=== PATIENT | male | born 1965 ===

== ENCOUNTER 2017-09-18 14:41 | Emergency (ER) | payer OTHER ==
[2017-09-18 14:55] VITALS: BMI 25.2
[2017-09-18 15:05] VITALS: BP 135/92; PULSE 102; RESP 18; TEMP 98.7; O2SAT 96
--- NOTE | 2017-09-18 15:46 | ED PDOC ---
Arrival/HPI - General Chief Complaint: Lower Extremity Problem/Injury Time Seen by Provider: 09/18/17 15:42 Historian: Patient - History of Present Illness Narrative History of Present Illness (Text): 09/18/17 15:44 A 52 year old male, whose past medical history includes diabetes on Metformin, presents to the emergency department complaining of intermittent pain to bilateral hamstrings since today. Patient reports he was recently seen for same symptoms and discharged home with medication. Patient states he was unable to fill prescriptions dues to financial issues. Patient denies any trauma, fever, chills, nausea, vomiting, diarrhea, abdominal pain, urinary symptoms, chest pain , shortness of breath, headache, dizziness, weakness or any other complaints. Time/Duration: Other (today) Symptom Course: Intermittent Quality: Throbbing Context: Home Past Medical History - Provider Review Nursing Documentation Reviewed: Yes - Endocrine/Metabolic Hx Diabetes Mellitus Type 2: Yes - Psychiatric Hx Substance Use: No Family/Social History - Physician Review Nursing Documentation Reviewed: Yes Family/Social History: No Known Family HX Smoking Status: Never Smoked Hx Alcohol Use: Yes Frequency of alcohol use: Daily Hx Substance Use: No Allergies/Home Meds Allergies/Adverse Reactions: Allergies No Known Allergies Allergy (Verified 09/18/17 14:55) Review of Systems - Physician Review All systems were reviewed & negative as marked: Yes - Review of Systems Constitutional: absent: Fevers, Night Sweats Respiratory: absent: SOB Cardiovascular: absent: Chest Pain Gastrointestinal: absent: Abdominal Pain, Diarrhea, Nausea, Vomiting Genitourinary Male: absent: Dysuria, Frequency, Hematuria Musculoskeletal: Back Pain, Other (pain to bilateral hamstrings) Skin: absent: Rash, Pruritis Neurological: absent: Headache, Dizziness, Focal Weakness Psychiatric: absent: Anxiety, Depression Physical Exam Vital Signs Reviewed: Yes Vital Signs Temp Pulse Resp BP Pulse Ox 09/18/17 14:41 98.7 F 102 H 18 135/92 H 96 Temperature: Afebrile Blood Pressure: Hypertensive Pulse: Tachycardic Respiratory Rate: Normal Appearance: Positive for: Well-Appearing, Non-Toxic, Comfortable Pain Distress: None Mental Status: Positive for: Alert and Oriented X 3 - Systems Exam Head: Present: Atraumatic, Normocephalic Pupils: Present: PERRL Extroacular Muscles: Present: EOMI Conjunctiva: Present: Normal Mouth: Present: Moist Mucous Membranes Neck: Present: Normal Range of Motion Respiratory/Chest: Present: Clear to Auscultation, Good Air Exchange. No: Respiratory Distress, Accessory Muscle Use Cardiovascular: Present: Regular Rate and Rhythm, Normal S1, S2. No: Murmurs Abdomen: Present: Normal Bowel Sounds. No: Tenderness, Distention, Peritoneal Signs Rectal: Present: Normal Rectal Tone. No: Occult Blood, Rectal Tenderness, Gross Blood, Melena, Hemorrhoids, Fissures, Nodule/Mass/Lesions Back: Present: Normal Inspection. No: Midline Tenderness, Paraspinal Tenderness , Pain with Leg Raise Upper Extremity: Present: Normal Inspection, Normal ROM, NORMAL PULSES. No: Cyanosis, Edema Lower Extremity: Present: Normal Inspection, NORMAL PULSES, Normal ROM, Neurovascularly Intact, Capillary Refill < 2 s, Other (distal pulses intact bilaterally; no calf tenderness, full rom of both extremities. muscle strenght 5 /5 bilaterally). No: Edema, CALF TENDERNESS, Tenderness, Swelling, Erythema, Deformity, Temperature Abnormalties Neurological: Present: GCS=15, Speech Normal, Motor Func Grossly Intact, Normal Sensory Function, Normal Cerebellar Funct, Gait Normal Skin: Present: Warm, Dry, Normal Color. No: Rashes Psychiatric: Present: Alert, Oriented x 3 Medical Decision Making ED Course and Treatment: 09/18/17 15:44 Impression: A 52 year old male with pain to bilateral hamstrings today. pt states he was seen in ER on 09/09/17 with same complaints; pt states he didnt take medications prescribed. account found from 09/09/17 account number; [id number] mr: [id number] reviewed cbc cmp magnesium duplex b/l lower legs xray ls spine; toradol/valium ordered 09/18/17 17:16 pt is ambulating around the ER; no distress. 09/18/17 17:36 pt eloped from ER without treatment/testing. - RAD Interpretation Radiology Orders: 09/18/17 16:12 DUPLEX LOWER EXTRM VEIN BILAT [US] Stat 09/18/17 16:22 LS SPINE WITH OBL > 18 YRS OLD [RAD] Stat - Medication Orders Current Medication Orders: Discontinued Medications Diazepam (Valium) 5 mg PO ONCE ONE Stop: 09/18/17 17:16 Ketorolac Tromethamine (Toradol) 60 mg IM STAT STA Stop: 09/18/17 17:16 - Scribe Statement The provider has reviewed the documentation as recorded by the Scribe Karen Newberry Provider Scribe Attestation: All medical record entries made by the Scribe were at my direction and personally dictated by me. I have reviewed the chart and agree that the record accurately reflects my personal performance of the history, physical exam, medical decision making, and the department course for this patient. I have also personally directed, reviewed, and agree with the discharge instructions and disposition. Disposition/Present on Arrival - Present on Arrival Any Indicators Present on Arrival: No History of DVT/PE: No History of Uncontrolled Diabetes: No Urinary Catheter: No History of Decub. Ulcer: No History Surgical Site Infection Following: None - Disposition Have Diagnosis and Disposition been Completed?: Yes Diagnosis: Back pain, Leg pain Disposition: ELOPEMENT - ER ONLY Disposition Time: 17:38 Condition: UNKNOWN Referrals: PCP,NO [Primary Care Provider] - Follow up with primary Forms: [employer] (Pashto)
== END 2017-09-18 17:35 | disposition left against medical advice (07) ==
LOC: ED 14:41
DX: M79.605 Pain in left leg (principal); M79.604 Pain in right leg; M54.9 Dorsalgia, unspecified; E11.9 Type 2 diabetes mellitus without complications

== ENCOUNTER 2017-11-06 11:03 | Emergency (ER) | payer OTHER ==
[2017-11-06 11:03] VITALS: BMI 25.2
[2017-11-06 11:51] VITALS: RESP 18
--- NOTE | 2017-11-06 11:59 | ED PDOC ---
Arrival/HPI - General Chief Complaint: Alcohol Ingestion Time Seen by Provider: 11/06/17 11:05 Historian: Patient - History of Present Illness Narrative History of Present Illness (Text): 11/06/17 11:37 A 52 year old male, whose past medical history includes intoxication, who presents to the emergency department brought in for alcohol intoxication. Patient denies any suicidal/homicidal ideation, chest pain, abdominal pain, or any other complaints at this time. Limited HPI and ROS secondary to intoxication. No PMD Time/Duration: Other (today) Symptom Onset: Gradual Symptom Course: Unchanged Activities at Onset: Light Past Medical History - Provider Review Nursing Documentation Reviewed: Yes - Endocrine/Metabolic Hx Diabetes Mellitus Type 2: Yes - Psychiatric Hx Substance Use: No Family/Social History - Physician Review Nursing Documentation Reviewed: Yes Family/Social History: No Known Family HX Smoking Status: Never Smoked Hx Alcohol Use: Yes Hx Substance Use: No Allergies/Home Meds Allergies/Adverse Reactions: Allergies No Known Allergies Allergy (Verified 11/06/17 11:08) Home Medications: Home Meds Medication Instructions Recorded Confirmed Unobtainable 11/06/17 11/06/17 Review of Systems - Review of Systems Systems not reviewed;Unavailable: Intoxicated Physical Exam Vital Signs Reviewed: Yes Vital Signs Temp Pulse Resp BP Pulse Ox 11/06/17 18:10 98.8 F 100 H 18 114/77 96 11/06/17 16:44 115 H 18 134/99 H 99 11/06/17 12:56 94 H 18 132/78 99 11/06/17 11:45 98.3 F 108 H 18 134/88 99 11/06/17 11:14 98.3 F 108 H 17 134/88 97 Temperature: Afebrile Blood Pressure: Normal Pulse: Regular Respiratory Rate: Normal Appearance: Positive for: Other (intoxicated; etoh on breath) Pain Distress: None Mental Status: No: Alert and Oriented X 3 (alert and oriented x 2) Finger Stick Blood Glucose: 113 - Systems Exam Head: Present: Atraumatic, Normocephalic Pupils: Present: PERRL Extroacular Muscles: Present: EOMI Conjunctiva: Present: Normal Mouth: Present: Moist Mucous Membranes Neck: Present: Normal Range of Motion. No: Meningeal Signs, MIDLINE TENDERNESS , Paraspinal Tenderness Respiratory/Chest: Present: Clear to Auscultation, Good Air Exchange. No: Respiratory Distress, Accessory Muscle Use Cardiovascular: Present: Regular Rate and Rhythm, Normal S1, S2. No: Murmurs Abdomen: No: Tenderness, Distention, Peritoneal Signs Upper Extremity: Present: Normal Inspection. No: Cyanosis, Edema Lower Extremity: Present: Normal Inspection. No: Edema Neurological: Present: GCS=15, CN II-XII Intact, Speech Normal Skin: Present: Warm, Dry, Normal Color. No: Rashes Psychiatric: Present: Alert. No: Oriented x 3 (oriented x 2) Medical Decision Making ED Course and Treatment: 11/06/17 11:39 Impression: 52 year old male brought in due to intoxication. Physical exam shows patient is alert and oriented x 2, patient has EtOH on breath; otherwise normal examination. Plan: -- Fingerstick Progress Notes: 18:10 - Patient is no alert awake and oriented x 3. He states he drank too much but was not trying to harm himself. No SI or HI. He has no slurred speech. No ataxia. He was recommended an alcohol detox program and given instructions of places to go. He says he is safe to go home. - Lab Interpretations Lab Results: Lab Results 11/06/17 11:44: POC Glucose (mg/dL) 113 H 11/06/17 11:20: POC Glucose (mg/dL) 128 H - Medication Orders Current Medication Orders: Discontinued Medications Al Hydrox/Mg Hydrox/Simethicone (Maalox Plus 30 Ml) 30 ml PO STAT STA Stop: 11/06/17 17:02 Last Admin: 11/06/17 17:55 Dose: 30 ml Ibuprofen (Motrin Tab) 600 mg PO STAT STA Stop: 11/06/17 17:02 Last Admin: 11/06/17 17:55 Dose: 600 mg - Scribe Statement The provider has reviewed the documentation as recorded by the Stephanie David Provider Scribe Attestation: All medical record entries made by the Shamaibheidy were at my direction and personally dictated by me. I have reviewed the chart and agree that the record accurately reflects my personal performance of the history, physical exam, medical decision making, and the department course for this patient. I have also personally directed, reviewed, and agree with the discharge instructions and disposition. Disposition/Present on Arrival - Present on Arrival Any Indicators Present on Arrival: No History of DVT/PE: No History of Uncontrolled Diabetes: No Urinary Catheter: No History of Decub. Ulcer: No History Surgical Site Infection Following: None - Disposition Have Diagnosis and Disposition been Completed?: Yes Diagnosis: Alcohol abuse Disposition: HOME/ ROUTINE Disposition Time: 18:10 Patient Plan: Discharge Condition: IMPROVED Discharge Instructions (ExitCare): Alcohol Abuse and Alcoholism (DC) Additional Instructions: Mr Juvenal Johnston, thank you for letting us take care of you today. Your provider was Dr. Lowery. You were treated for Alcohol Intoxication. The emergency medical care you received today was directed at your acute symptoms. If you were prescribed any medication, please fill it and take as directed. It may take several days for your symptoms to resolve. Return to the Emergency Department if your symptoms worsen, do not improve, or if you have any other problems. Please contact your doctor or call one of the physicians/clinics you have been referred to that are listed on the Patient Visit Information form that is included in your discharge packet. Bring any paperwork you were given at discharge with you along with any medications you are taking to your follow up visit. Our treatment cannot replace ongoing medical care by a primary care provider (PCP) outside of the emergency department. Thank you for allowing the [facility] team to be part of your care today. If you had an X-Ray or CT scan: A Radiologist will review the ED reading if any change in treatment is needed we will contact you. If you had a blood, urine, or wound culture: It will take several days for the results, if any change in treatment is needed we will contact you. If you had an STI test: It will take 48 hours for the results. Please call after 1 week if you have not heard back. Referrals: [facility] [place] - Follow up with primary Forms: [employer] (Burkinan), WORK NOTE
[2017-11-06] MEDS ORDERED: Alum-Mag Hydrox-Simethicone Susp (30 mL) PO STA (17:01)
[2017-11-06 18:14] VITALS: BP 114/77; PULSE 100; TEMP 98.8; O2SAT 96
== END 2017-11-06 18:10 | disposition home or self-care (01) ==
LOC: ED 11:03
DX: F10.10 Alcohol abuse, uncomplicated (principal); E11.9 Type 2 diabetes mellitus without complications